=== PATIENT | female | born 1950 | race Caucasian/White ===

== ENCOUNTER 2019-05-17 12:01 | Emergency (ER) | payer MEDICARE ==
--- NOTE | 2019-05-17 12:45 | ER Document Report ---
ED Medical Screen (RME) - General Chief Complaint: Fall Stated Complaint: FALL/RIGHT ARM INJURY Time Seen by Provider: 05/17/19 12:42 Primary Care Provider: CIPRIANO ALLEN MD [Primary Care Provider] - Follow up as needed Mode of Arrival: Wheelchair Information source: Relative Notes: 68-year-old female presented to ED for falling and hitting her walker on her arm causing skin tears to right forearm. She does have a history of dementia. 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 Daughter states the only injuries are to her right forearm to skin tears. I have greeted and performed a rapid initial assessment of this patient. A comprehensive ED assessment and evaluation of the patient, analysis of test results and completion of medical decision making process will be conducted by an additional ED providers. TRAVEL OUTSIDE OF THE [place] IN LAST 30 DAYS: No Doctor's Discharge - Discharge Referrals: CIPRIANO ALLEN MD [Primary Care Provider] - Follow up as needed
[2019-05-17 13:49] VITALS: BP 118/62
[2019-05-17] MEDS ORDERED: DIPH/PERTUSS(ACELL)/TETANUS VAC/PF 0.5 ML SYR (>=10YO) IM ONE (13:56)
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
== END 2019-05-17 14:12 | disposition home or self-care (01) ==
LOC: ER 12:01
DX: S51.811A Laceration without foreign body of right forearm, initial encounter (principal); W18.30XA Fall on same level, unspecified, initial encounter; F03.90 Unspecified dementia, unspecified severity, without behavioral disturbance, psychotic disturbance, mood disturbance, and anxiety; I10 Essential (primary) hypertension; Z96.643 Presence of artificial hip joint, bilateral; Z96.651 Presence of right artificial knee joint; Z23 Encounter for immunization
CPT/HCPCS: 90471; 90715; 99282

== ENCOUNTER 2019-09-01 13:29 | Emergency (ER) | payer MEDICARE ==
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
--- NOTE | 2019-09-01 15:09 | RADIOLOGY REPORT (SQ) ---
EXAM DESCRIPTION: FOOT LEFT COMPLETE COMPLETED DATE/TIME: 09/01/2019 3:00 pm REASON FOR STUDY: left heel ulcer COMPARISON: None. NUMBER OF VIEWS: Three views. TECHNIQUE: AP, lateral and oblique radiographic images acquired of the left foot. LIMITATIONS: None. FINDINGS: MINERALIZATION: Normal. BONES: No acute fracture or dislocation. No worrisome bone lesions. No conventional radiographic ev idence of osteomyelitis. JOINTS: No effusions. SOFT TISSUES: Soft tissue changes overlying the calcaneus. OTHER: No other significant finding. IMPRESSION: Soft tissue changes. No conventional radiographic evidence of osteomyelitis. TECHNICAL DOCUMENTATION: JOB ID: [id number] [employer]- All Rights Reserved Reading location - IP/workstation name: [email or web address]
[2019-09-01 16:20] LABS: ABSOLUTE EOSINOPHILS # (AUTO) 0.1 10^3/uL (0.0-0.6); ABSOLUTE MONOCYTES (AUTO) 0.4 10^3/uL (0.1-1.4); ABSOLUTE NEUT (AUTO) 3.2 10^3/uL (1.7-8.2); BASOPHILS % (AUTO) 0.4 % (0-2); EOSINOPHILS % (AUTO) 2.3 % (0-6); HEMATOCRIT 40.8 % (36.0-47.0); HEMOGLOBIN 13.5 g/dL (12.0-15.5); LYMPHOCYTES % (AUTO) 21.8 % (13-45); MEAN CORPUSCULAR HEMOGLOBIN 29.1 pg (27.0-33.4); MEAN CORPUSCULAR VOLUME 88 fl (80-97); MONOCYTES % (AUTO) 7.5 % (3-13); PLATELET COUNT 194 10^3/uL (150-450); RED BLOOD COUNT 4.63 10^6/uL (3.72-5.28); RED CELL DISTRIBUTION WIDTH 13.4 % (11.5-14.0); TOTAL CELLS COUNTED % (AUTO) 100 %; WHITE BLOOD COUNT 4.8 10^3/uL (4.0-10.5)
[2019-09-01 16:36] LABS: ALBUMIN 3.8 g/dL (3.5-5.0); ALKALINE PHOSPHATASE 120 U/L (38-126); ANION GAP 7 (5-19); ASPARTATE AMINO TRANSFERASE 27 U/L (14-36); BILIRUBIN,DIRECT 0.2 mg/dL (0.0-0.4); BILIRUBIN,TOTAL 0.2 mg/dL (0.2-1.3); BLOOD UREA NITROGEN 38 mg/dL (7-20); CALCIUM 9.6 mg/dL (8.4-10.2); CARBON DIOXIDE 35 mmol/L (22-30); CHLORIDE 107 mmol/L (98-107); GLUCOSE 96 mg/dL (75-110); POTASSIUM 4.5 mmol/L (3.6-5.0); TOTAL PROTEIN 7.3 g/dL (6.3-8.2)
[2019-09-01] MEDS ORDERED: AMOXICILLIN TR/POT CLAVULANATE 500-125 MG TAB PO ONE (18:35)
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
[2019-09-01 19:13] VITALS: BP 110/64
== END 2019-09-01 19:18 | disposition home or self-care (01) ==
LOC: ER 13:29
DX: L89.622 Pressure ulcer of left heel, stage 2 (principal); L89.612 Pressure ulcer of right heel, stage 2; R50.9 Fever, unspecified; R23.1 Pallor; G30.9 Alzheimer's disease, unspecified; F02.80 Dementia in other diseases classified elsewhere, unspecified severity, without behavioral disturbance, psychotic disturbance, mood disturbance, and anxiety; R45.1 Restlessness and agitation; R25.1 Tremor, unspecified; I10 Essential (primary) hypertension; M19.90 Unspecified osteoarthritis, unspecified site; Z79.1 Long term (current) use of non-steroidal anti-inflammatories (NSAID); Z79.899 Other long term (current) drug therapy; Z88.8 Allergy status to other drugs, medicaments and biological substances
CPT/HCPCS: 99283; 36415; 87040; 87070; 87205; 83605; 85025; 87077; 80053; 73630; A9270; 87186

== ENCOUNTER 2020-01-13 19:27 | Inpatient (IN) | payer MEDICARE ==
[2020-01-13] MEDS ORDERED: RINGERS SOLUTION,LACTATED 1,000 ML IV ONE ×2 (20:14→21:51)
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
[2020-01-13 20:56] LABS: ABSOLUTE EOSINOPHILS # (AUTO) 0.2 10^3/uL (0.0-0.6); ABSOLUTE LYMPHOCYTES (AUTO) 1.2 10^3/uL (0.5-4.7); ABSOLUTE MONOCYTES (AUTO) 0.3 10^3/uL (0.1-1.4); ABSOLUTE NEUT (AUTO) 4.8 10^3/uL (1.7-8.2); BASOPHILS % (AUTO) 0.2 % (0-2); EOSINOPHILS % (AUTO) 2.4 % (0-6); HEMATOCRIT 47.7 % (36.0-47.0); HEMOGLOBIN 15.4 g/dL (12.0-15.5); LYMPHOCYTES % (AUTO) 18.9 % (13-45); MEAN CORPUSCULAR HEMOGLOBIN 29.1 pg (27.0-33.4); MEAN CORPUSCULAR HGB CONC 32.3 g/dL (32.0-36.0); MEAN CORPUSCULAR VOLUME 90 fl (80-97); PLATELET COUNT 125 10^3/uL (150-450); RED BLOOD COUNT 5.29 10^6/uL (3.72-5.28); RED CELL DISTRIBUTION WIDTH 15.6 % (11.5-14.0); SEGMENTED NEUTROPHILS % (AUTO) 73.5 % (42-78); TOTAL CELLS COUNTED % (AUTO) 100 %; WHITE BLOOD COUNT 6.6 10^3/uL (4.0-10.5)
[2020-01-13 21:14] LABS: ALKALINE PHOSPHATASE 173 U/L (38-126); ASPARTATE AMINO TRANSFERASE 39 U/L (14-36); BILIRUBIN,DIRECT 0.1 mg/dL (0.0-0.4); BILIRUBIN,TOTAL 0.3 mg/dL (0.2-1.3); BLOOD UREA NITROGEN 96 mg/dL (7-20); CALCIUM 9.9 mg/dL (8.4-10.2); CARBON DIOXIDE 30 mmol/L (22-30); CHLORIDE 141 mmol/L (98-107); GLUCOSE 144 mg/dL (75-110); POTASSIUM 4.1 mmol/L (3.6-5.0); TOTAL PROTEIN 7.4 g/dL (6.3-8.2)
[2020-01-13 21:21] LABS: ANION GAP 4 (5-19)
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
[2020-01-13 22:03] LABS: APPEARANCE,URINE SLIGHTLY-CLOUDY; BILIRUBIN,URINE NEGATIVE (NEGATIVE); COLOR,URINE YELLOW; GLUCOSE, URINE NEGATIVE (NEGATIVE); KETONES,URINE NEGATIVE (NEGATIVE); LEUKOCYTE ESTERASE,URINE SMALL (NEGATIVE); NITRITE,URINE NEGATIVE (NEGATIVE); PROTEIN,URINE 30 mg/dL (NEGATIVE); URINE SPECIFIC GRAVITY 1.025; UROBILINOGEN,URINE NEGATIVE mg/dL (<2.0)
[2020-01-13] MEDS ORDERED: CEFTRIAXONE 1 GM/D5W RTU 1 GM/50 ML RTUPB IV ONE (22:16)
[2020-01-13] MEDS ORDERED: ACETAMINOPHEN 650 MG SUPP.RECT PR PRN (22:42)
[2020-01-13] MEDS ORDERED: PROMETHAZINE HCL INJ 25 MG/1 ML VIAL IV PRN (22:42)
[2020-01-13] MEDS ORDERED: DEXTROSE 5%-1/2 NORMAL SALINE 1,000 ML IV PRN (22:42)
[2020-01-13] MEDS ORDERED: MAGNESIUM HYDROXIDE SUSP 30 ML UDCUP PO PRN (22:42)
[2020-01-13] MEDS ORDERED: ONDANSETRON HCL INJ/PF 4 MG/2 ML SDV IV PRN (22:42)
[2020-01-13] MEDS ORDERED: IPRATROPIUM/ALBUTEROL 0.5-2.5 MG/3 ML AMPUL NEB PRN (22:42)
--- NOTE | 2020-01-13 23:14 | PDOC H&P ---
History of Present Illness Admission Date/PCP: 01/13/20 22:42 CIPRIANO ALLEN MD History of Present Illness: YAMILETH BULLARD is a 69 year old female past medical history of advanced dementia, who is nonverbal and noncommunicative at baseline, depression, brought in by her daughter who is the primary caregiver for worsening weakness, inability to take any oral intake, constipation and low urinary output. Source of history is her daughter who is in the room accompanying her and who is also the POA. At baseline patient is bedbound but ambulates with maximum assistance, takes in her IV fluids through a straw. For the last 1 week patient has been unable to take in fluids through a straw and family has been unable to give her IV fluids through any other routes except through a syringe but they have not been unable to keep her hydrated. At her baseline which was 2 weeks ago patient is able to ambulate but with maximum assistance, is able to take p.o. intake if they are pured and thick liquid with help of the family. Over the last week family has noticed that patient is more and more lethargic and seems to be very weak. As per family patient has not had any fever, shortness of breath, nausea vomiting, diarrhea or has not had communicated if she is in pain. Patient is DNR/DNI and as per her POA who is her daughter patient had expressedly mentioned that she did not want any kind of tube including PEG tube. Past Medical History Cardiac Medical History: Reports: Hypertension GI Medical History: Reports: Gastroesophageal Reflux Disease Musculoskeltal Medical History: Reports: Arthritis Psychiatric Medical History: Reports: Dementia Past Surgical History Past Surgical History: Reports: Orthopedic Surgery - Bilateral hip replacements right knee placement Social History Smoking Status: Former Smoker Family History Family History: Reviewed & Not Pertinent Parental Family History Reviewed: Yes Children Family History Reviewed: Yes Sibling(s) Family History Reviewed.: Yes Medication/Allergy Home Medications: Amoxicillin/Potassium Clav [Augmentin 500-125 Tablet] 1 tab PO TID 10 Days #30 tablet 09/01/19 Allergies/Adverse Reactions: prednisolone [From Blephamide] Allergy (Verified 05/17/19 13:56) swelling sulfacetamide [From Blephamide] Allergy (Verified 05/17/19 13:56) swelling Review of Systems ROS unobtainable: Due to mental status Physical Exam Vital Signs: Temp Pulse Resp BP Pulse Ox 98.3 F 104 H 16 102/78 96 01/13/20 19:42 01/13/20 19:42 01/13/20 21:18 01/13/20 19:42 01/13/20 21:18 Intake & Output 01/12/20 01/13/20 01/14/20 06:59 06:59 06:59 Weight 54.431 kg General appearance: PRESENT: no acute distress, thin, other - dry Head exam: PRESENT: atraumatic, normocephalic Mouth exam: PRESENT: dry mucosa Neck exam: ABSENT: carotid bruit, JVD, lymphadenopathy, thyromegaly Respiratory exam: PRESENT: clear to auscultation yevgeniy. ABSENT: rales, rhonchi, wheezes Cardiovascular exam: PRESENT: RRR. ABSENT: diastolic murmur, rubs, systolic murmur GI/Abdominal exam: PRESENT: normal bowel sounds, soft. ABSENT: distended, guarding, mass, organolmegaly, rebound, tenderness Neurological exam: PRESENT: awake, other - Nonverbal and noncommunicative at baseline. Does not follow any commands at baseline. Skin exam: PRESENT: dry Results Laboratory Results: 01/13/20 20:39 01/13/20 20:39 01/13/20 01/13/20 01/13/20 20:36 20:39 20:39 WBC 6.6 RBC 5.29 H Hgb 15.4 Hct 47.7 H MCV 90 MCH 29.1 MCHC 32.3 RDW 15.6 H Plt Count 125 L Seg Neutrophils % 73.5 Sodium 174.5 H* Potassium 4.1 Chloride 141 H Carbon Dioxide 30 Anion Gap 4 L BUN 96 H Creatinine 1.41 H Est GFR ( Amer) 44 L Glucose 144 H Serum Osmolality 401 H Lactic Acid Calcium 9.9 Total Bilirubin 0.3 AST 39 H Alkaline Phosphatase 173 H Total Protein 7.4 Albumin 4.0 Urine Color Urine Appearance Urine pH Ur Specific [place] Urine Protein Urine Glucose (UA) Urine Ketones Urine Blood Urine Nitrite Ur Leukocyte Esterase Urine WBC (Auto) Urine RBC (Auto) 01/13/20 01/13/20 20:39 21:30 WBC RBC Hgb Hct MCV MCH MCHC RDW Plt Count Seg Neutrophils % Sodium Potassium Chloride Carbon Dioxide Anion Gap BUN Creatinine Est GFR ( Amer) Glucose Serum Osmolality Lactic Acid 1.9 Calcium Total Bilirubin AST Alkaline Phosphatase Total Protein Albumin Urine Color YELLOW Urine Appearance SLIGHTLY-CLOUDY Urine pH 5.0 Ur Specific [place] 1.025 Urine Protein 30 H Urine Glucose (UA) NEGATIVE Urine Ketones NEGATIVE Urine Blood MODERATE H Urine Nitrite NEGATIVE Ur Leukocyte Esterase SMALL H Urine WBC (Auto) 8 Urine RBC (Auto) 3 Assessment and Plan - Diagnosis (1) Hypernatremia Is this a current diagnosis for this admission?: Yes Plan: Most likely chronic. Last available sodium 148 on August 2019. Likely due to low p.o. intake. Free water deficit 4237. Admit to CU, D5W-1/4 NS at the rate of 90 mL/h with goal of correcting sodium 8 to 10 mEq in the next 24 hours. BMP every 6 hours. Seizure, fall and aspiration precautions. (2) Dehydration Is this a current diagnosis for this admission?: Yes Plan: Due to p.o. intolerance. Plan as per #1. Monitor vitals status electrolytes. Replace as needed. Patient has difficulty taking in p.o. intake chronically which is getting worse, as per family patient had made her wishes clear that she did not want any type of tube. (3) EDWARD (acute kidney injury) Is this a current diagnosis for this admission?: Yes Plan: Prerenal. Most likely due to dehydration caused by low p.o. intake. Fluid restriction guided by volume status status, strict in and out, monitor electrolytes and replete as needed Avoid nephrotoxic meds. We will obtain renal ultrasound to rule out any obstruction. (4) Constipation Qualifiers: Constipation type: unspecified constipation type Qualified Code(s): K59.00 - Constipation, unspecified Is this a current diagnosis for this admission?: Yes Plan: Most likely due to severe dehydration. Volume resuscitation guided by volume status. PRN stool softener and laxatives. (5) Dysphagia Qualifiers: Dysphagia type: oropharyngeal phase Qualified Code(s): R13.12 - Dysphagia, oropharyngeal phase Is this a current diagnosis for this admission?: Yes Plan: Likely due to advanced dementia. Patient does not have any history of CVA in the past. Dysphagia has been gradual. Patient may benefit from a PEG tube however as per her daughter who is the POA patient had expressly stated that she did not want any type of tubes including PEG tube. We will consult speech therapy for any assistance. (6) UTI (urinary tract infection) Qualifiers: Urinary tract infection type: acute cystitis Is this a current diagnosis for this admission?: Yes Plan: Likely due to gram-negative rods including E. coli. Empiric IV antibiotic. Follow-up urine culture (7) Dementia Qualifiers: Dementia type: Alzheimer's disease Is this a current diagnosis for this admission?: Yes Plan: History of severe dementia which started about 8 years ago. At baseline patient is noncommunicative and nonverbal. Primary caregiver his daughter who is also the POA. Resume home meds. (8) Malnutrition Qualifiers: Malnutrition type: protein-calorie malnutrition Protein-calorie malnutrition severity: moderate Qualified Code(s): E44.0 - Moderate protein- calorie malnutrition Is this a current diagnosis for this admission?: Yes Plan: BMI 17.6. Most likely due to low p.o. intake. Continue nutritional support. Will consult dietitian.
[2020-01-13] MEDS ORDERED: PANTOPRAZOLE SODIUM 40 MG VIAL IV ONE (23:15)
[2020-01-13] MEDS ORDERED: DEXTROSE 5%-1/4 NORMAL SALINE 1,000 ML IV PRN (23:15)
[2020-01-14 00:59] LABS: BLOOD UREA NITROGEN 91 mg/dL (7-20); CALCIUM 9.4 mg/dL (8.4-10.2); GLUCOSE 98 mg/dL (75-110); PHOSPHORUS 3.5 mg/dL (2.5-4.5); POTASSIUM 3.9 mmol/L (3.6-5.0)
[2020-01-14 01:06] LABS: CARBON DIOXIDE 33 mmol/L (22-30); CHLORIDE 138 mmol/L (98-107)
[2020-01-14 01:08] LABS: ANION GAP 0 (5-19)
[2020-01-14] MEDS ORDERED: DEXTROSE 5%-1/4 NORMAL SALINE 1,000 ML IV PRN (03:13)
[2020-01-14 07:39] LABS: MEAN CORPUSCULAR HEMOGLOBIN 29.2 pg (27.0-33.4); MEAN CORPUSCULAR HGB CONC 31.4 g/dL (32.0-36.0); MEAN CORPUSCULAR VOLUME 93 fl (80-97); RED CELL DISTRIBUTION WIDTH 15.6 % (11.5-14.0)
[2020-01-14 08:06] LABS: HEMOGLOBIN 12.5 g/dL (12.0-15.5); PLATELET COUNT 85 10^3/uL (150-450)
[2020-01-14 08:08] LABS: ABSOLUTE LYMPHOCYTES# (MANUAL) 1.4 10^3/uL (0.5-4.7); ABSOLUTE MONOCYTES # (MANUAL) 0.1 10^3/uL (0.1-1.4); BASOPHILS % (MANUAL) 0 % (0-2); EOSINOPHILS % (MANUAL) 5 % (0-6); LYMPHOCYTES % (MANUAL) 23 % (13-45); MONOCYTES % (MANUAL) 1 % (3-13); SEGMENTED NEUTROPHILS % (MAN) 71 % (42-78); TOTAL CELLS COUNTED 100
[2020-01-14 08:09] LABS: ANISOCYTOSIS SLIGHT; BLOOD UREA NITROGEN 83 mg/dL (7-20); CALCIUM 8.8 mg/dL (8.4-10.2); GLUCOSE 95 mg/dL (75-110); OVALOCYTES SLIGHT; PHOSPHORUS 3.1 mg/dL (2.5-4.5); PLATELET COMMENT DECREASED; POIKILOCYTOSIS SLIGHT; POTASSIUM 3.6 mmol/L (3.6-5.0)
[2020-01-14 08:14] LABS: CHLORIDE 140 mmol/L (98-107)
[2020-01-14 08:21] LABS: CARBON DIOXIDE 31 mmol/L (22-30)
[2020-01-14] MEDS ORDERED: PANTOPRAZOLE SODIUM 40 MG VIAL IV SCH (10:00)
[2020-01-14] MEDS: ENOXAPARIN SODIUM INJ 30 MG/0.3 ML DISP.SYRIN SUBCUT SCH (10:02)
[2020-01-14] MEDS ORDERED: DEXTROSE 5%-WATER 1000 ML 1,000 ML IV PRN ×3 (10:19→19:20)
[2020-01-14] MEDS ORDERED: QUETIAPINE FUMARATE 25 MG TABLET PO PRN (10:24)
--- NOTE | 2020-01-14 10:38 | PDOC PROGRESS REPORT ---
Subjective Progress Note for:: 01/14/20 Subjective:: Patient is nonverbal. Her conversation with patient's daughter about goals of care. Apparently it has been taking 30 minutes to 1 hour to feed patient. Patient has shown gradual decline in her oral intake and over the past 2 weeks has not been able to eat as much as she could before. Reason For Visit: HYPERNATREMIA,ANOREXIA Physical Exam Vital Signs: Temp Pulse Resp BP Pulse Ox 97.4 F 79 19 115/65 98 01/14/20 08:09 01/14/20 08:09 01/14/20 08:09 01/14/20 08:09 01/14/20 08:09 Intake & Output 01/13/20 01/14/20 01/15/20 06:59 06:59 06:59 Intake Total 1050 1000 Output Total 350 Balance 700 1000 Weight 48.2 kg General appearance: PRESENT: no acute distress, cooperative Mouth exam: PRESENT: dry mucosa Neck exam: ABSENT: JVD Respiratory exam: PRESENT: clear to auscultation yevgeniy, unlabored. ABSENT: tachypnea, wheezes Cardiovascular exam: PRESENT: RRR, +S1, +S2. ABSENT: tachycardia GI/Abdominal exam: PRESENT: soft. ABSENT: rebound, rigid, tenderness Neurological exam: PRESENT: alert, awake, aphasic - Nonverbal. ABSENT: oriented to person, oriented to place, oriented to time, oriented to situation Psychiatric exam: ABSENT: agitated, anxious Focused psych exam: ABSENT: internal stimuli Skin exam: PRESENT: dry Results Laboratory Results: 01/14/20 07:02 01/14/20 07:02 01/13/20 01/13/20 01/13/20 20:36 20:39 20:39 WBC 6.6 RBC 5.29 H Hgb 15.4 Hct 47.7 H MCV 90 MCH 29.1 MCHC 32.3 RDW 15.6 H Plt Count 125 L Seg Neutrophils % 73.5 Sodium 174.5 H* Potassium 4.1 Chloride 141 H Carbon Dioxide 30 Anion Gap 4 L BUN 96 H Creatinine 1.41 H Est GFR ( Amer) 44 L Glucose 144 H Serum Osmolality 401 H Lactic Acid Calcium 9.9 Phosphorus Magnesium Total Bilirubin 0.3 AST 39 H Alkaline Phosphatase 173 H Total Protein 7.4 Albumin 4.0 Urine Color Urine Appearance Urine pH Ur Specific [place] Urine Protein Urine Glucose (UA) Urine Ketones Urine Blood Urine Nitrite Ur Leukocyte Esterase Urine WBC (Auto) Urine RBC (Auto) 01/13/20 01/13/20 01/14/20 20:39 21:30 00:40 WBC RBC Hgb Hct MCV MCH MCHC RDW Plt Count Seg Neutrophils % Sodium 170.7 H* Potassium 3.9 Chloride 138 H Carbon Dioxide 33 H Anion Gap 0 L BUN 91 H Creatinine 1.39 H Est GFR ( Amer) 45 L Glucose 98 Serum Osmolality Lactic Acid 1.9 Calcium 9.4 Phosphorus 3.5 Magnesium 3.4 H Total Bilirubin AST Alkaline Phosphatase Total Protein Albumin Urine Color YELLOW Urine Appearance SLIGHTLY-CLOUDY Urine pH 5.0 Ur Specific [place] 1.025 Urine Protein 30 H Urine Glucose (UA) NEGATIVE Urine Ketones NEGATIVE Urine Blood MODERATE H Urine Nitrite NEGATIVE Ur Leukocyte Esterase SMALL H Urine WBC (Auto) 8 Urine RBC (Auto) 3 01/14/20 01/14/20 07:02 07:02 WBC 6.0 RBC 4.30 Hgb 12.5 D Hct 40.0 MCV 93 MCH 29.2 MCHC 31.4 L RDW 15.6 H Plt Count 85 L Seg Neutrophils % Not Reportable Sodium 169.9 H* Potassium 3.6 Chloride 140 H Carbon Dioxide 31 H Anion Gap BUN 83 H Creatinine 1.17 Est GFR ( Amer) 55 L Glucose 95 Serum Osmolality Lactic Acid Calcium 8.8 Phosphorus 3.1 Magnesium 3.0 H Total Bilirubin AST Alkaline Phosphatase Total Protein Albumin Urine Color Urine Appearance Urine pH Ur Specific [place] Urine Protein Urine Glucose (UA) Urine Ketones Urine Blood Urine Nitrite Ur Leukocyte Esterase Urine WBC (Auto) Urine RBC (Auto) Assessment and Plan - Diagnosis (1) Hypernatremia Is this a current diagnosis for this admission?: Yes Plan: Patient is with severe hypernatremia which is most likely chronic due to low p.o. intake and dehydration. Very high free water deficit. Goal sodium correction of 10 MEQ per 24-hour We will try to replace a fraction of patient's free water deficit as well as ongoing free water losses over the next 24 hours monitoring BMP every 6 hours D5W at 100 cc/h (2) Dehydration Is this a current diagnosis for this admission?: Yes Plan: Due to poor p.o. intake. Contributing to hyponatremia. Plan as above. (3) Advanced dementia Is this a current diagnosis for this admission?: Yes Plan: Patient is at baseline nonverbal, immobile and bedbound. She has also had notable significant drop in her p.o. intake over the last several months. Only able to take small amounts of feeding and feeding patient takes 30 minutes to 1 hour. Unfortunately, dehydration, malnutrition and hyponatremia will likely be a recurrent event given patient's advanced dementia and I have had extensive conversation with patient's daughter who is POA about comfort/hospice care. She will deliberate further with her siblings. Continue memantine and donepezil Daughter confirms DNR/DNI status (4) Moderate malnutrition Is this a current diagnosis for this admission?: Yes Plan: Secondary to dementia. Unfortunately there is not much that can be done to reverse of fixed this problem. Patient's daughter informs me that patient had advanced directive which forbids placement of any artificial feeding or tubes. Okay for IV fluids. (5) Dysphagia Qualifiers: Dysphagia type: oropharyngeal phase Qualified Code(s): R13.12 - Dysphagia, oropharyngeal phase Is this a current diagnosis for this admission?: Yes Plan: Likely due to advanced dementia. Speech therapy has been consulted. However if patient truly has dysphagia, there is nothing that can be done about this and artificial feeding is not an option here given patient's wishes as divulged by her daughter. (6) UTI (urinary tract infection) Qualifiers: Urinary tract infection type: acute cystitis Is this a current diagnosis for this admission?: Yes Plan: Urinalysis is weakly positive. Uncertain that patient has a true UTI and may simply have asymptomatic bacteriuria, but as patient cannot volunteer symptoms, I will continue treatment with ceftriaxone for 3 days. DC antibiotics if urine culture is negative. - Time Time Spent with patient: 15-24 minutes
--- NOTE | 2020-01-14 10:40 | ADVANCED CARE ---
- Diagnosis (1) Hypernatremia Diagnosis Current: Yes (2) Dehydration Diagnosis Current: Yes (3) Advanced dementia Diagnosis Current: Yes (4) Moderate malnutrition Diagnosis Current: Yes Attendance: Patient's daughter and myself Resuscitation Status: Do Not Resuscitate Discussion: We had an elaborate discussion about patient's overall goals of care. We also discussed patient's condition and how this issues of hyponatremia, dehydration, malnutrition, poor oral intake will likely become a recurrent issue with patient's advanced dementia. We also discussed the typical progression of dementia and how patient is at a stage of end-stage dementia. Daughter confirms that patient's wishes to be DNR/DNI status. Daughter also confirms that she is the POA for patient. Furthermore, daughter states that patient has an advanced directive which states that she does not want any form of artificial feeding including tubes. Discussed hospice care and comfort care. Patient's daughter will deliberate further with her siblings and come to a decision regarding this. Time Spent: 18mins
[2020-01-14 16:51] LABS: BLOOD UREA NITROGEN 76 mg/dL (7-20); CALCIUM 8.5 mg/dL (8.4-10.2); CARBON DIOXIDE 30 mmol/L (22-30); CHLORIDE 138 mmol/L (98-107); GLUCOSE 111 mg/dL (75-110); POTASSIUM 3.6 mmol/L (3.6-5.0)
[2020-01-14] MEDS: MELOXICAM 7.5 MG TABLET PO SCH (21:26)
[2020-01-14] MEDS: MEMANTINE HCL 10 MG TABLET PO SCH (21:27)
[2020-01-14] MEDS: QUETIAPINE FUMARATE 25 MG TABLET PO SCH (21:27)
--- NOTE | 2020-01-14 22:15 | EKG REPORT ---
SEVERITY:- NORMAL ECG - SINUS RHYTHM : Confirmed by: Gosia Thomas MD 14-Jan-2020 22:14:02
[2020-01-14 23:06] LABS: BLOOD UREA NITROGEN 65 mg/dL (7-20); CALCIUM 8.5 mg/dL (8.4-10.2); GLUCOSE 116 mg/dL (75-110)
[2020-01-14 23:07] LABS: CARBON DIOXIDE 29 mmol/L (22-30); CHLORIDE 135 mmol/L (98-107); POTASSIUM 3.4 mmol/L (3.6-5.0)
[2020-01-15] MEDS ORDERED: POTASSI CL 20 MEQ/D5-1/4NS 1L 1,000 ML IV PRN (01:44)
[2020-01-15 06:07] LABS: BLOOD UREA NITROGEN 63 mg/dL (7-20); CALCIUM 8.1 mg/dL (8.4-10.2); CARBON DIOXIDE 31 mmol/L (22-30); CHLORIDE 133 mmol/L (98-107); GLUCOSE 91 mg/dL (75-110); POTASSIUM 3.5 mmol/L (3.6-5.0)
[2020-01-15 06:37] LABS: ANION GAP -1 (5-19)
[2020-01-15] MEDS ORDERED: DONEPEZIL HCL 5 MG TABLET PO SCH (10:00)
[2020-01-15] MEDS ORDERED: PANTOPRAZOLE SODIUM 40 MG VIAL IV SCH (10:00)
[2020-01-15 10:52] LABS: BLOOD UREA NITROGEN 59 mg/dL (7-20); CALCIUM 8.4 mg/dL (8.4-10.2); CARBON DIOXIDE 33 mmol/L (22-30); CHLORIDE 129 mmol/L (98-107); GLUCOSE 89 mg/dL (75-110); POTASSIUM 3.5 mmol/L (3.6-5.0)
[2020-01-15] MEDS ORDERED: ACETAMINOPHEN 325 MG TABLET PO PRN (10:54)
[2020-01-15] MEDS ORDERED: LORAZEPAM 1 MG TABLET PO PRN (10:56)
[2020-01-15] MEDS: MELOXICAM 7.5 MG TABLET PO SCH ×2 (11:10→22:09)
[2020-01-15] MEDS: ENOXAPARIN SODIUM INJ 30 MG/0.3 ML DISP.SYRIN SUBCUT SCH (11:11)
[2020-01-15] MEDS: MEMANTINE HCL 10 MG TABLET PO SCH (11:12)
--- NOTE | 2020-01-15 15:58 | PDOC PROGRESS REPORT ---
Subjective Progress Note for:: 01/15/20 Subjective:: Subjective not obtainable given patient's advanced dementia and nonverbal state. Daughter today states that she wants patient to be made comfort care and would like to take patient on home hospice. Reason For Visit: HYPERNATREMIA,ANOREXIA Physical Exam Vital Signs: Temp Pulse Resp BP Pulse Ox 97.9 F 57 L 14 103/88 H 99 01/15/20 08:00 01/15/20 09:51 01/15/20 09:51 01/15/20 08:00 01/15/20 09:51 Intake & Output 01/14/20 01/15/20 01/16/20 06:59 06:59 06:59 Intake Total 1050 2000 4 Output Total 350 525 100 Balance 700 1475 -96 Weight 48.2 kg 55.6 kg General appearance: PRESENT: no acute distress, cooperative Neck exam: ABSENT: JVD Respiratory exam: PRESENT: clear to auscultation yevgeniy, unlabored. ABSENT: tachypnea, wheezes Cardiovascular exam: PRESENT: RRR, +S1, +S2. ABSENT: tachycardia GI/Abdominal exam: PRESENT: soft. ABSENT: rebound, rigid, tenderness Neurological exam: PRESENT: alert, awake, aphasic. ABSENT: oriented to person, oriented to place, oriented to time, oriented to situation Results Laboratory Results: 01/14/20 07:02 01/15/20 09:47 01/14/20 01/14/20 01/15/20 16:16 21:59 04:36 Sodium 165.3 H 162.5 H 162.7 H Potassium 3.6 3.4 L 3.5 L Chloride 138 H 135 H 133 H Carbon Dioxide 30 29 31 H Anion Gap -1 L BUN 76 H 65 H 63 H Creatinine 1.04 1.08 1.08 Est GFR ( Amer) > 60 > 60 > 60 Glucose 111 H 116 H 91 Calcium 8.5 8.5 8.1 L Magnesium 3.0 H 2.8 H 01/15/20 09:47 Sodium 161.8 H Potassium 3.5 L Chloride 129 H Carbon Dioxide 33 H Anion Gap BUN 59 H Creatinine 1.14 Est GFR ( Amer) 57 L Glucose 89 Calcium 8.4 Magnesium Assessment and Plan - Diagnosis (1) Hypernatremia Is this a current diagnosis for this admission?: Yes (2) Dehydration Is this a current diagnosis for this admission?: Yes (3) Advanced dementia Is this a current diagnosis for this admission?: Yes (4) Moderate malnutrition Is this a current diagnosis for this admission?: Yes (5) Dysphagia Qualifiers: Dysphagia type: oropharyngeal phase Qualified Code(s): R13.12 - Dysphagia, oropharyngeal phase Is this a current diagnosis for this admission?: Yes (6) UTI (urinary tract infection) Qualifiers: Urinary tract infection type: acute cystitis Is this a current diagnosis for this admission?: Yes (7) EDWARD (acute kidney injury) Is this a current diagnosis for this admission?: Yes - Plan Summary Summary: Patient's hyponatremia is improved with fluids. EDWARD has resolved Patient's daughter states that she has discussed it with her siblings and that they have decided to make patient comfort care measures only. She would like to take patient home on hospice once this can be arranged. Her wishes will be respected. Patient is now hosp[facility] for [facility], pain control as needed. Have discussed with planner intern to set patient up for home hospice. - Time Time Spent with patient: Less than 15 minutes
[2020-01-15] MEDS: QUETIAPINE FUMARATE 25 MG TABLET PO SCH (22:09)
[2020-01-16] MEDS ORDERED: PANTOPRAZOLE SODIUM 20 MG TABLET.DR PO SCH (06:00)
--- NOTE | 2020-01-16 10:34 | PDOC DISCHARGE SUMMARY ---
Impression - Admit/DC Date/PCP Admission Date/Primary Care Provider: 01/13/20 22:42 CIPRIANO ALLEN MD Discharge Date: 01/16/20 - Discharge Diagnosis (1) Hypernatremia Is this a current diagnosis for this admission?: Yes (2) Hospice care Is this a current diagnosis for this admission?: Yes (3) Dehydration Is this a current diagnosis for this admission?: Yes (4) Advanced dementia Is this a current diagnosis for this admission?: Yes (5) Moderate malnutrition Is this a current diagnosis for this admission?: Yes (6) Dysphagia Is this a current diagnosis for this admission?: Yes (7) UTI (urinary tract infection) Is this a current diagnosis for this admission?: Yes (8) EDWARD (acute kidney injury) Is this a current diagnosis for this admission?: Yes - Additional Information Resuscitation Status: Do Not Resuscitate Discharge Diet: Regular Referrals: [facility] [Provider Group] CIPRIANO ALLEN MD [Primary Care Provider] - Follow up as needed Prescriptions: Lorazepam [Ativan 1 mg Tablet] 1 mg SL Q4HP PRN #10 tablet PRN Reason: Home Medications: Esomeprazole Magnesium [Nexium 24Hr] 20 mg PO QHS 01/14/20 Meloxicam [Mobic 7.5 mg Tablet] 7.5 mg PO Q12 01/14/20 Quetiapine Fumarate [Seroquel 25 mg Tablet] 25 mg PO BIDP PRN MDD 150 MG 01/14/20 Quetiapine Fumarate [Seroquel 25 mg Tablet] 25 mg PO QHS 01/14/20 Acetaminophen [Tylenol 325 mg Tablet] 650 mg PO Q4HP PRN tablet 01/16/20 Lorazepam [Ativan 1 mg Tablet] 1 mg SL Q4HP PRN #10 tablet 01/16/20 History of Present Illiness History of Present Illness: According to admitting provider: YAMILETH BULLARD is a 69 year old female past medical history of advanced dementia, who is nonverbal and noncommunicative at baseline, depression, brought in by her daughter who is the primary caregiver for worsening weakness, inability to take any oral intake, constipation and low urinary output. Source of history is her daughter who is in the room accompanying her and who is also the POA. At baseline patient is bedbound but ambulates with maximum assistance, takes in her IV fluids through a straw. For the last 1 week patient has been unable to take in fluids through a straw and family has been unable to give her IV fluids through any other routes except through a syringe but they have not been unable to keep her hydrated. At her baseline which was 2 weeks ago patient is able to ambulate but with maximum assistance, is able to take p.o. intake if they are pured and thick liquid with help of the family. Over the last week family has noticed that patient is more and more lethargic and seems to be very weak. As per family patient has not had any fever, shortness of breath, nausea vomiting, diarrhea or has not had communicated if she is in pain. Patient is DNR/DNI and as per her POA who is her daughter patient had expressedly mentioned that she did not want any kind of tube including PEG tube. Hospital Course Hospital Course: Patient was brought into the hospital for treatment of severe dehydration, hypernatremia with EDWARD. Her sodium was significantly elevated at 174. She was started on D5 1/4 NS and later transitioned to D5W. Her sodium levels began to improve. Has severe hypernatremia, severe dehydration, malnutrition all secondary to poor p.o. intake due to her advanced end-stage dementia. She is nonverbal and noncommunicative at baseline at this point. And her p.o. intake has continued to decline in the past several months. Urinalysis was also positive and she was started on antibiotics for possible UTI. Of note, patient's leukocyte count was normal and patient was not febrile and given patient's dementia it is impossible to know if she really had urinary symptoms. Advanced care planning was performed with patient's daughter who is also her POA Shira, who after discussing and deliberating with her siblings, concluded that they wanted to pursue hospice care. Patient was converted to hospice care and discharge planning has set patient up with [facility] for home hospice. Physical Exam Vital Signs: Temp Pulse Resp BP Pulse Ox 98.0 F 58 L 16 135/63 H 98 01/16/20 08:13 01/16/20 08:13 01/16/20 08:13 01/16/20 08:13 01/16/20 08:13 Intake & Output 01/15/20 01/16/20 01/17/20 06:59 06:59 06:59 Intake Total 2000 44 Output Total 525 575 Balance 1475 -531 Weight 55.6 kg 55 kg General appearance: PRESENT: no acute distress, cooperative, thin Respiratory exam: PRESENT: unlabored Neurological exam: PRESENT: alert, awake, aphasic Psychiatric exam: ABSENT: agitated, anxious Results Laboratory Results: WBC 6.0 10^3/uL (4.0-10.5) 01/14/20 07:02 RBC 4.30 10^6/uL (3.72-5.28) 01/14/20 07:02 Hgb 12.5 g/dL (12.0-15.5) D 01/14/20 07:02 Hct 40.0 % (36.0-47.0) 01/14/20 07:02 MCV 93 fl (80-97) 01/14/20 07:02 MCH 29.2 pg (27.0-33.4) 01/14/20 07:02 MCHC 31.4 g/dL (32.0-36.0) L 01/14/20 07:02 RDW 15.6 % (11.5-14.0) H 01/14/20 07:02 Plt Count 85 10^3/uL (150-450) L 01/14/20 07:02 Lymph % (Auto) Not Reportable 01/14/20 07:02 [place] % (Auto) Not Reportable 01/14/20 07:02 Eos % (Auto) Not Reportable 01/14/20 07:02 Baso % (Auto) Not Reportable 01/14/20 07:02 Absolute Neuts (auto) Not Reportable 01/14/20 07:02 Absolute Lymphs (auto) Not Reportable 01/14/20 07:02 Absolute Monos (auto) Not Reportable 01/14/20 07:02 Absolute Eos (auto) Not Reportable 01/14/20 07:02 Absolute Basos (auto) Not Reportable 01/14/20 07:02 Total Counted 100 01/14/20 07:02 Seg Neutrophils % Not Reportable 01/14/20 07:02 Seg Neuts % (Manual) 71 % (42-78) 01/14/20 07:02 Lymphocytes % (Manual) 23 % (13-45) 01/14/20 07:02 Monocytes % (Manual) 1 % (3-13) L 01/14/20 07:02 Eosinophils % (Manual) 5 % (0-6) 01/14/20 07:02 Basophils % (Manual) 0 % (0-2) 01/14/20 07:02 Abs Neuts (Manual) 4.3 10^3/uL (1.7-8.2) 01/14/20 07:02 Abs Lymphs (Manual) 1.4 10^3/uL (0.5-4.7) 01/14/20 07:02 Abs Monocytes (Manual) 0.1 10^3/uL (0.1-1.4) 01/14/20 07:02 Absolute Eos (Manual) 0.3 10^3/uL (0.0-0.6) 01/14/20 07:02 Abs Basophils (Manual) 0.0 10^3/uL (0.0-0.2) 01/14/20 07:02 Platelet Comment DECREASED 01/14/20 07:02 Poikilocytosis SLIGHT 01/14/20 07:02 Anisocytosis SLIGHT 01/14/20 07:02 Ovalocytes SLIGHT 01/14/20 07:02 Sodium 161.8 mmol/L (137-145) H 01/15/20 09:47 Potassium 3.5 mmol/L (3.6-5.0) L 01/15/20 09:47 Chloride 129 mmol/L (98-107) H 01/15/20 09:47 Carbon Dioxide 33 mmol/L (22-30) H 01/15/20 09:47 Anion Gap (5-19) 01/15/20 09:47 BUN 59 mg/dL (7-20) H 01/15/20 09:47 Creatinine 1.14 mg/dL (0.52-1.25) 01/15/20 09:47 Est GFR ( Amer) 57 (>60) L 01/15/20 09:47 Est GFR (MDRD) Non-Af 47 (>60) L 01/15/20 09:47 Glucose 89 mg/dL (75-110) 01/15/20 09:47 POC Glucose 90 mg/dL (70-110) 01/15/20 05:24 Serum Osmolality 401 mOsm/kg (275-301) H 01/13/20 20:36 Lactic Acid 1.9 mmol/L (0.7-2.1) 01/13/20 20:39 Calcium 8.4 mg/dL (8.4-10.2) 01/15/20 09:47 Phosphorus 3.1 mg/dL (2.5-4.5) 01/14/20 07:02 Magnesium 2.8 mg/dL (1.6-2.3) H 01/15/20 04:36 Total Bilirubin 0.3 mg/dL (0.2-1.3) 01/13/20 20:39 Direct Bilirubin 0.1 mg/dL (0.0-0.4) 01/13/20 20:39 Neonat Total Bilirubin Not Reportable 01/13/20 20:39 Neonat Direct Bilirubin Not Reportable 01/13/20 20:39 Neonat Indirect Bili Not Reportable 01/13/20 20:39 AST 39 U/L (14-36) H 01/13/20 20:39 ALT 48 U/L (<35) H 01/13/20 20:39 Alkaline Phosphatase 173 U/L (38-126) H 01/13/20 20:39 Total Protein 7.4 g/dL (6.3-8.2) 01/13/20 20:39 Albumin 4.0 g/dL (3.5-5.0) 01/13/20 20:39 Urine Color YELLOW 01/13/20 21:30 Urine Appearance SLIGHTLY-CLOUDY 01/13/20 21:30 Urine pH 5.0 (5.0-9.0) 01/13/20 21:30 Ur Specific [place] 1.025 01/13/20 21:30 Urine Protein 30 mg/dL (NEGATIVE) H 01/13/20 21:30 Urine Glucose (UA) NEGATIVE mg/dL (NEGATIVE) 01/13/20 21:30 Urine Ketones NEGATIVE mg/dL (NEGATIVE) 01/13/20 21:30 Urine Blood MODERATE (NEGATIVE) H 01/13/20 21:30 Urine Nitrite NEGATIVE (NEGATIVE) 01/13/20 21:30 Urine Bilirubin NEGATIVE (NEGATIVE) 01/13/20 21:30 Urine Urobilinogen NEGATIVE mg/dL (<2.0) 01/13/20 21:30 Ur Leukocyte Esterase SMALL (NEGATIVE) H 01/13/20 21:30 Urine WBC (Auto) 8 /HPF 01/13/20 21:30 Urine RBC (Auto) 3 /HPF 01/13/20 21:30 Urine Bacteria (Auto) 3+ /HPF 01/13/20 21:30 Urine Mucus (Auto) MOD /LPF 01/13/20 21:30 Urine Ascorbic Acid 40 (NEGATIVE) H 01/13/20 21:30 Plan Time Spent: Less than 30 Minutes Stroke Is this a Stroke Patient?: No Acute Heart Failure - Is this a Heart Failure Patient?: No
[2020-01-16] MEDS: MELOXICAM 7.5 MG TABLET PO SCH (10:40)
[2020-01-16 10:57] VITALS: BP 124/74
== END 2020-01-16 11:41 | disposition hospice, home (50) | DRG 641 ==
LOC: ER 19:27 → EH 22:42 → 3W 23:52
PROVIDERS: ADMIT Internal Medicine; ATTEND Internal Medicine
DX: E87.0 Hyperosmolality and hypernatremia (principal); E44.0 Moderate protein-calorie malnutrition; N17.9 Acute kidney failure, unspecified; N39.0 Urinary tract infection, site not specified; Z68.1 Body mass index [BMI] 19.9 or less, adult; E86.0 Dehydration; R13.10 Dysphagia, unspecified; F32.9 Major depressive disorder, single episode, unspecified; Z74.01 Bed confinement status; Z66 Do not resuscitate; I10 Essential (primary) hypertension; K21.9 Gastro-esophageal reflux disease without esophagitis; M19.90 Unspecified osteoarthritis, unspecified site; Z87.891 Personal history of nicotine dependence; Z88.0 Allergy status to penicillin; Z88.8 Allergy status to other drugs, medicaments and biological substances; Z96.643 Presence of artificial hip joint, bilateral; K59.00 Constipation, unspecified; R13.12 Dysphagia, oropharyngeal phase; G30.9 Alzheimer's disease, unspecified; F02.80 Dementia in other diseases classified elsewhere, unspecified severity, without behavioral disturbance, psychotic disturbance, mood disturbance, and anxiety; Z51.5 Encounter for palliative care
CPT/HCPCS: 36415; 51701; 80048; 80053; 81001; 82962; 83605; 83735; 83930; 84100; 85025; 87040; 87086; 87088; 87186; 93005; 93010; 99285; C9113; J0696; J7060; J7120